=== PATIENT | female | born 1950 | race Caucasian/White ===

== ENCOUNTER → 2018-07-05 | Outpatient (CLI) | payer MEDICARE, OTHER ==
[~2018-07-05] MED LIST: ALBU90AE INH; CALC0.25 PO; CALC1CAP8 PO; CLON0.1T PO; CYCL7.5T25 PO; ESTR42.53 VG; FLUT9.9S NS; GABA300C10 PO; LEVO150T5 PO; LISI5TAB7 PO; MONT10TA9 PO; OMEG1CAP23 PO; OMEP40CA6 PO; SERT100T PO; SERT100T5 PO; TRAM50TA2 PO; clonazepam
[2018-07-05 16:41] LABS: BASOPHILS # (AUTO) 0.04 x10^3/uL (0-0.1); BASOPHILS % (AUTO) 1 % (0-1); EOSINOPHILS # (AUTO) 0.22 x10^3/uL (0-0.4); EOSINOPHILS % (AUTO) 3 % (1-7); LYMPHOCYTES # (AUTO) 1.48 x10^3/uL (1-3.4); LYMPHOCYTES % (AUTO) 20 % (22-44); MD NO; MEAN CORPUSCULAR HEMOGLOBIN 30.6 pg (27.0-34.8); MEAN CORPUSCULAR HGB CONC 33.9 g/dL (32.4-35.8); MEAN CORPUSCULAR VOLUME 90.4 fL (80-100); MEAN PLATELET VOLUME 8.9 fL (7.4-10.4); MONOCYTES # (AUTO) 0.58 x10^3/uL (0.2-0.8); MONOCYTES % (AUTO) 8 % (2-9); NEUTROPHILS # (AUTO) 5.18 x10^3/uL (1.8-6.8); NEUTROPHILS % (AUTO) 69 % (42-75); PLATELET COUNT 148 x10^3/uL (130-400); RED BLOOD COUNT 4.93 x10^6/uL (3.82-5.3); RED CELL DISTRIBUTION WIDTH 13.3 % (9.6-15.2)
[2018-07-05 16:48] LABS: PROTHROMBIN TIME 10.4 Seconds (9.6-11.5)
[2018-07-05 16:49] LABS: ALANINE AMINOTRANSFERASE 33 U/L (12-78); ALBUMIN 3.8 g/dL (3.4-5.0); ANION GAP 8 mmol/L (5-15); CALCIUM 8.2 mg/dL (8.5-10.1); CHLORIDE 104 mmol/L (98-107); CREATININE 0.83 mg/dL (0.55-1.02)
[2018-07-05 16:52] LABS: ALKALINE PHOSPHATASE 81 U/L (45-117); BILIRUBIN,TOTAL 0.4 mg/dL (0.2-1.0); TOTAL PROTEIN 7.9 g/dL (6.4-8.2)
[2018-07-05 17:05] LABS: MICROSCOPIC NOT IND
[2018-07-05 17:10] LABS: CULTURE INDICATED? NO
== END | disposition home or self-care (01) ==
LOC: STAR 15:03
PROVIDERS: ATTEND Neurological Surgery
DX: Z01.818 Encounter for other preprocedural examination (principal); I10 Essential (primary) hypertension
CPT/HCPCS: 36415; 71046; 80053; 81003; 85025; 85610; 85730; 93005

== ENCOUNTER 2018-11-04 14:46 | Outpatient (CLI) | payer MEDICARE, OTHER ==
[~2018-11-04 14:46] MED LIST changes: -CLON0.1T PO; +CLON0.1T22 PO; +SERT100T32 PO; -SERT100T5 PO
[2018-11-04 15:21] LABS: BASOPHILS # (AUTO) 0.03 x10^3/uL (0-0.1); BASOPHILS % (AUTO) 0 % (0-1); EOSINOPHILS # (AUTO) 0.22 x10^3/uL (0-0.4); EOSINOPHILS % (AUTO) 2 % (1-7); LYMPHOCYTES # (AUTO) 2.38 x10^3/uL (1-3.4); LYMPHOCYTES % (AUTO) 26 % (22-44); MD NO; MEAN CORPUSCULAR HEMOGLOBIN 29.5 pg (27.0-34.8); MEAN CORPUSCULAR HGB CONC 32.6 g/dL (32.4-35.8); MEAN CORPUSCULAR VOLUME 90.7 fL (80-100); MEAN PLATELET VOLUME 8.4 fL (7.4-10.4); MONOCYTES # (AUTO) 0.44 x10^3/uL (0.2-0.8); MONOCYTES % (AUTO) 5 % (2-9); NEUTROPHILS # (AUTO) 6.09 x10^3/uL (1.8-6.8); NEUTROPHILS % (AUTO) 66 % (42-75); PLATELET COUNT 154 x10^3/uL (130-400); RED BLOOD COUNT 4.88 x10^6/uL (3.82-5.3); RED CELL DISTRIBUTION WIDTH 12.9 % (9.6-15.2)
[2018-11-04 15:34] LABS: ALANINE AMINOTRANSFERASE 25 U/L (12-78); ALBUMIN 3.9 g/dL (3.4-5.0); ANION GAP 9 mmol/L (5-15); CALCIUM 8.8 mg/dL (8.5-10.1); CHLORIDE 105 mmol/L (98-107); CHOLESTEROL, TOTAL 147 mg/dL (140-239); CREATININE 0.66 mg/dL (0.55-1.02)
[2018-11-04 15:36] LABS: INTERNATIONAL NORMALIZED RATIO 1.02 (0.93-1.1); PROTHROMBIN TIME 10.8 Seconds (9.6-11.5)
[2018-11-04 15:39] LABS: ALKALINE PHOSPHATASE 94 U/L (45-117); BILIRUBIN,TOTAL 0.5 mg/dL (0.2-1.0); CHOL/HDL RATIO 3.4; HDL CHOL % 29 % (28-40); HDL CHOLESTEROL (DIRECT) 43 mg/dL (40-60); LDL CHOLESTEROL,CALCULATED 73 mg/dL (54-169); LDL/HDL RATIO 1.7 (0.5-3.0); TOTAL PROTEIN 7.7 g/dL (6.4-8.2); TRIGLYCERIDES 156 mg/dL (50-200); VLDL CHOLESTEROL 31 mg/dL (0-25)
[2018-11-04 16:03] LABS: FREE T4 (FREE THYROXINE) 1.65 ng/dL (0.76-1.46)
[2018-11-13] MEDS ORDERED: BACITRACIN ZINC OINT 500U/GM, 0.9 GM ONE (06:49)
[2018-11-13] MEDS ORDERED: BACITRACIN 50,000 UNIT ONE (06:49)
[2018-11-13] MEDS ORDERED: THROMBIN 5,000 UNIT VIAL TP ONE (06:49)
[2018-11-13] MEDS ORDERED: BUPIVACAINE/PF 0.25% ONE (06:49)
[2018-11-13] MEDS ORDERED: EPINEPHRINE 1 MG/ML, 1ML ONE (06:49)
== END 2018-11-04 23:59 | disposition home or self-care (01) ==
LOC: LAB 14:46
DX: Z01.818 Encounter for other preprocedural examination (principal); T85.192D Other mechanical complication of implanted electronic neurostimulator of spinal cord electrode (lead), subsequent encounter; E03.9 Hypothyroidism, unspecified; M25.561 Pain in right knee; G89.29 Other chronic pain; X58.XXXD Exposure to other specified factors, subsequent encounter; Z79.899 Other long term (current) drug therapy
CPT/HCPCS: 36415; 80053; 80061; 82306; 84439; 84443; 84703; 85025; 85610; 85730

== ENCOUNTER 2018-11-13 08:01 | Day surgery (SDC) | payer MEDICARE, OTHER ==
[~2018-11-13] VITALS: Ht 162.6 cm; Wt 98.7 kg
[2018-11-13 09:17] VITALS: BP 137/87
[2018-11-13] MEDS ORDERED: LACTATED RINGERS 1,000 ML IV SCH (09:22)
[2018-11-13] MEDS ORDERED: LIDOCAINE-MPF 1%, 2ML INFIL ONE (09:30)
[2018-11-13] MEDS ORDERED: FENTANYL PF 250 MCG/5ML ONE (10:54)
[2018-11-13] MEDS ORDERED: PROPOFOL 100 ML ONE (10:54)
[2018-11-13] MEDS ORDERED: CLINDAMYCIN 150 MG/ML, 6ML ONE (11:13)
[2018-11-13] MEDS ORDERED: ROCURONIUM 10MG/ML,5ML ONE (11:46)
[2018-11-13] MEDS ORDERED: CEFAZOLIN 1,000 MG ONE (11:46)
[2018-11-13] MEDS ORDERED: ONDANSETRON 2MG/ML, 2ML ONE (11:46)
[2018-11-13] MEDS ORDERED: SUCCINYLCHOLINE 20 MG/ML, 10ML ONE (11:46)
[2018-11-13] MEDS ORDERED: DEXAMETHASONE 4 MG/ML, 1ML ONE (11:46)
[2018-11-13] MEDS ORDERED: NEOSTIGMINE 1 MG/ML, 10ML ONE (11:46)
[2018-11-13] MEDS ORDERED: GLYCOPYRROLATE 0.2MG/1ML, 5ML ONE (11:46)
[2018-11-13] MEDS ORDERED: PROPOFOL 10 MG/ML, 20ML ONE (11:46)
[2018-11-13] MEDS ORDERED: OXYcodone 5 MG/5 ML ORAL.SOL UDC ONE (12:16)
[2018-11-13] MEDS ORDERED: FENTANYL PF 100 MCG/2ML ONE (12:16)
[2018-11-13] MEDS: FENTANYL PF 100 MCG/2ML IV PRN ×2 (12:21→12:37)
[2018-11-13] MEDS ORDERED: MEPERIDINE/PF 25MG/0.5ML IVPush PRN (12:30)
[2018-11-13] MEDS ORDERED: HYDROmorphone 2 MG/ML, 1ML IVPush PRN (12:30)
[2018-11-13] MEDS ORDERED: OXYcodone 5 MG/5 ML ORAL.SOL UDC PO PRN (12:30)
[2018-11-13] MEDS ORDERED: ONDANSETRON 2MG/ML, 2ML IV PRN (12:30)
[2018-11-13] MEDS ORDERED: hydrALAzine 20 MG/ML, 1ML IV PRN (12:30)
[2018-11-13] MEDS ORDERED: PROMETHAZINE 25 MG/ML, 1ML IV PRN (12:30)
[2018-11-13] MEDS ORDERED: ONDANSETRON ODT 8 MG PO PRN (12:30)
[2018-11-13] MEDS ORDERED: DIAZEPAM 5 MG/ML, 2ML IVPush PRN (12:30)
[2018-11-13] MEDS ORDERED: LABETALOL 5MG/ML, 20ML IV PRN (12:30)
[2018-11-13] MEDS ORDERED: ACETAMINOPHEN 325 MG TABLET PO PRN (12:30)
[2018-11-13] MEDS ORDERED: OXYcodone IR 5MG TABLET PO PRN (15:00)
== END 2018-11-13 16:00 | disposition home or self-care (01) ==
LOC: OUT 08:01
PROVIDERS: ATTEND Neurological Surgery
DX: T85.193A Other mechanical complication of implanted electronic neurostimulator, generator, initial encounter (principal); J45.909 Unspecified asthma, uncomplicated; K21.9 Gastro-esophageal reflux disease without esophagitis; G43.909 Migraine, unspecified, not intractable, without status migrainosus; F32.9 Major depressive disorder, single episode, unspecified; F41.9 Anxiety disorder, unspecified; Z68.37 Body mass index [BMI] 37.0-37.9, adult; E66.8 Other obesity; Z88.6 Allergy status to analgesic agent; Z88.0 Allergy status to penicillin; Z87.39 Personal history of other diseases of the musculoskeletal system and connective tissue; Z86.73 Personal history of transient ischemic attack (TIA), and cerebral infarction without residual deficits; Z98.890 Other specified postprocedural states; Z90.710 Acquired absence of both cervix and uterus; Z87.891 Personal history of nicotine dependence; Z88.8 Allergy status to other drugs, medicaments and biological substances; Y83.8 Other surgical procedures as the cause of abnormal reaction of the patient, or of later complication, without mention of misadventure at the time of the procedure; Y92.89 Other specified places as the place of occurrence of the external cause
CPT/HCPCS: 63662; 72100; 93005; C1729; J0171; J0330; J0690; J1100; J2405; J2704; J2710; J3010; J3490; J7120

== ENCOUNTER 2021-02-11 05:54 | Day surgery (SDC) | payer MEDICARE, OTHER ==
[2021-02-09 13:59] LABS: ALANINE AMINOTRANSFERASE 23 U/L (12-78); ALBUMIN 3.9 g/dL (3.4-5.0); ANION GAP 4 mmol/L (5-15); CALCIUM 8.4 mg/dL (8.5-10.1); CHLORIDE 106 mmol/L (98-107)
[2021-02-09 14:01] LABS: ALKALINE PHOSPHATASE 109 U/L (45-117); BILIRUBIN,TOTAL 0.3 mg/dL (0.2-1.0); TOTAL PROTEIN 7.7 g/dL (6.4-8.2)
[~2021-02-11] VITALS: Ht 162.6 cm; Wt 99.0 kg
[~2021-02-11 05:54] MED LIST changes: +BUDE10.22 INH; +IBUP-1223 PO; +METF1000 PO; +METH-640 PO; +MONT10TA17 PO; -MONT10TA9 PO; +OLOP5DRO EACHEYE; +OMEP40CA42 PO; -OMEP40CA6 PO; +fish oil PO
[2021-02-11 06:50] VITALS: BP 137/84
[2021-02-11] MEDS ORDERED: MUPIROCIN OINT 2%, 22GM ONE (06:50)
[2021-02-11] MEDS ORDERED: EPINEPHRINE 1 MG/ML, 1ML ONE (06:51)
[2021-02-11] MEDS ORDERED: LIDOCAINE/PF 1%, 30ML ONE (06:51)
[2021-02-11] MEDS ORDERED: CHLORHEXIDINE 15 ML UDC ONE (06:54)
[2021-02-11] MEDS ORDERED: CHLORHEXIDINE 15 ML UDC PO ONE (07:00)
[2021-02-11] MEDS ORDERED: LACTATED RINGERS 1,000 ML IV SCH (07:00)
[2021-02-11] MEDS ORDERED: FENTANYL PF 100 MCG/2ML ONE ×2 (07:02→09:18)
[2021-02-11] MEDS ORDERED: MIDAZOLAM 1 MG/ML, 2ML ONE (07:03)
[2021-02-11] MEDS ORDERED: PROPOFOL 50 ML ONE (07:35)
[2021-02-11] MEDS ORDERED: CLINDAMYCIN 150 MG/ML, 6ML ONE (07:41)
[2021-02-11] MEDS ORDERED: ONDANSETRON 2MG/ML, 2ML IVPush PRN (09:00)
[2021-02-11] MEDS ORDERED: HYDROmorphone 1 MG/ML, 1ML INJ IVPush PRN (09:00)
[2021-02-11] MEDS ORDERED: HYDROcodone/APAP 7.5-325MG/15ML UDC PO PRN (09:00)
[2021-02-11] MEDS ORDERED: OXYcodone 5 MG/5 ML ORAL.SOL UDC PO PRN (09:00)
[2021-02-11] MEDS ORDERED: ACETAMINOPHEN 325 MG TABLET PO PRN (09:00)
[2021-02-11] MEDS ORDERED: MEPERIDINE/PF 25MG/0.5ML IVPush PRN (09:00)
[2021-02-11] MEDS ORDERED: PROMETHAZINE 25 MG/ML, 1ML IVPush PRN (09:00)
[2021-02-11] MEDS ORDERED: SUCCINYLCHOLINE 20 MG/ML, 10ML ONE (09:13)
[2021-02-11] MEDS ORDERED: NEOSTIGMINE 1 MG/ML, 10ML ONE (09:13)
[2021-02-11] MEDS ORDERED: GLYCOPYRROLATE 0.2MG/1ML, 5ML ONE (09:13)
[2021-02-11] MEDS ORDERED: PROPOFOL 10 MG/ML, 20ML ONE (09:13)
[2021-02-11] MEDS ORDERED: CEFAZOLIN 1,000 MG ONE (09:13)
[2021-02-11] MEDS ORDERED: ROCURONIUM 10MG/ML,5ML ONE (09:13)
[2021-02-11] MEDS ORDERED: ONDANSETRON 2MG/ML, 2ML ONE ×2 (09:13→09:32)
[2021-02-11] MEDS ORDERED: DEXAMETHASONE 4 MG/ML, 1ML ONE (09:13)
[2021-02-11] MEDS: FENTANYL PF 100 MCG/2ML IV PRN ×4 (09:20→10:03)
[2021-02-11] MEDS ORDERED: LORazepam 2 MG/ML, 1ML ONE (09:38)
[2021-02-11] MEDS ORDERED: LORazepam 2 MG/ML, 1ML IVPush PRN (10:00)
[2021-02-11] MEDS ORDERED: HYDROcodone/APAP 7.5-325MG/15ML UDC ONE (10:04)
== END 2021-02-11 11:45 | disposition home or self-care (01) ==
LOC: OUT 05:54
PROVIDERS: ATTEND Otolaryngology
DX: D11.0 Benign neoplasm of parotid gland (principal); E11.9 Type 2 diabetes mellitus without complications; I10 Essential (primary) hypertension; K21.9 Gastro-esophageal reflux disease without esophagitis; E66.9 Obesity, unspecified; Z20.822 Contact with and (suspected) exposure to COVID-19; Z79.899 Other long term (current) drug therapy; Z88.0 Allergy status to penicillin; Z88.2 Allergy status to sulfonamides; Z88.5 Allergy status to narcotic agent
CPT/HCPCS: 36415; 42420; 80053; 82962; 88305; 93005; J0171; J0330; J0690; J1100; J1170; J2060; J2250; J2405; J2704; J2710; J3010; J7120; U0003

== ENCOUNTER 2021-04-28 14:58 | Emergency (ER) | payer MEDICARE, OTHER ==
[~2021-04-28] VITALS: Ht 162.6 cm; Wt 93.0 kg
[~2021-04-28 14:58] MED LIST changes: -OMEP40CA42 PO; +OMEP40CA8 PO
--- NOTE | 2021-04-28 16:22 | NUR ---
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
--- NOTE | 2021-04-28 16:29 | NUR ---
PT REPORTS COMING INTO ED DUE TO LOWER RIGHT SIDED ABDOMINAL PAIN [id number] THAT TRAVELS DOWN INTO THE FRONT OF HER RIGHT LEG. PT REPORTS THIS GOT WORSE TODAY CAUSING HER TO COME IN TODAY. PT SO AT BS. REPORTS NAUSEA AND PAIN WITH MOVEMENT. PT RESTING ON GURNEY, PLACED ON MONITORING, BED IN LOWEST, RAILS ENGAGED, CALL LIGHT ON LAP, TM.
[2021-04-28] MEDS ORDERED: HYDROcodone/APAP 5/325 TABLET ONE (17:21)
[2021-04-28] MEDS ORDERED: HYDROcodone/APAP 5/325 TABLET PO ONE (17:30)
[2021-04-28 17:35] LABS: ALANINE AMINOTRANSFERASE 24 U/L (12-78); ALBUMIN 3.4 g/dL (3.4-5.0); ANION GAP 5 mmol/L (5-15); CALCIUM 7.6 mg/dL (8.5-10.1); CHLORIDE 106 mmol/L (98-107); CREATININE 0.71 mg/dL (0.55-1.02)
[2021-04-28 17:38] LABS: ALKALINE PHOSPHATASE 105 U/L (45-117); BASOPHILS % (AUTO) 1 % (0-1); BILIRUBIN,TOTAL 0.3 mg/dL (0.2-1.0); EOSINOPHILS % (AUTO) 2 % (1-7); LYMPHOCYTES % (AUTO) 23 % (22-44); MEAN CORPUSCULAR HEMOGLOBIN 30.2 pg (27.0-34.8); MEAN CORPUSCULAR HGB CONC 33.8 g/dL (32.4-35.8); MEAN PLATELET VOLUME 8.2 fL (7.4-10.4); MONOCYTES % (AUTO) 6 % (2-9); NEUTROPHILS % (AUTO) 68 % (42-75); PLATELET COUNT 142 x10^3/uL (130-400); RED BLOOD COUNT 4.49 x10^6/uL (3.82-5.3); RED CELL DISTRIBUTION WIDTH 13.5 % (9.6-15.2); TOTAL PROTEIN 7.4 g/dL (6.4-8.2)
--- NOTE | 2021-04-28 18:00 | NUR ---
PT MEDICATED PER MAR, PT RESTING ON GURNEY RESP EVEN AND UNLABORED NADN, VSS NO NEEDS AT THIS TIME. BED IN LOWEST, RAILS ENGAGED, CALL LIGHT ON LAP, WCTM.
[2021-04-28] MEDS ORDERED: OMNIPAQUE 350 MG/ML, 100ML BOTTLE ONE (18:10)
[2021-04-28 18:28] LABS: MICROSCOPIC INDICATED
[2021-04-28] MEDS ORDERED: CEFDINIR 300 MG CAPSULE ONE (19:23)
[2021-04-28 19:25] VITALS: BP 115/64
[2021-04-28] MEDS ORDERED: CEFDINIR 300 MG CAPSULE PO ONE (19:30)
--- NOTE | 2021-04-28 20:01 | NUR ---
Patient/Caregiver given discharge instructions and they have confirmed that they understand the instructions. Patient ambulatory with steady gait. NAD, all questions answered appropriately, denies additional needs at this time. No personal belongings left in room after discharge.
== END 2021-04-28 20:04 | disposition home or self-care (01) ==
LOC: ED 16:35
DX: N30.00 Acute cystitis without hematuria (principal); R19.7 Diarrhea, unspecified; J45.909 Unspecified asthma, uncomplicated; M19.90 Unspecified osteoarthritis, unspecified site; G89.29 Other chronic pain; F17.210 Nicotine dependence, cigarettes, uncomplicated; Z86.39 Personal history of other endocrine, nutritional and metabolic disease; Z90.710 Acquired absence of both cervix and uterus; Z90.89 Acquired absence of other organs
CPT/HCPCS: 36415; 74177; 80053; 81001; 83690; 85025; 87077; 87086; 87186; 99285; 99406; Q9967